=== PATIENT | male | born 1985 | race Hispanic/Latino ===

== ENCOUNTER 2019-07-23 14:25 | Emergency (ER) | payer OTHER ==
--- NOTE | 2019-07-23 14:50 | EDPHYS ---
Physician Documentation [facility] Name: Christopher Smith Age: 33 yrs Sex: Male : 1985 Arrival Date: 07/23/2019 Time: 14:27 Bed 18 Private MD: Unknown, Unknown ED Physician Alfie Caldwell HPI: 07/23 15:13 This 33 yrs old Male presents to ER via Ambulatory with complaints of Ear Pain.kb 15:13 The patient presents with pain. The complaints affect the right ear and left ear. kb Onset: The symptoms/episode began/occurred 5 day(s) ago. Modifying factors: The symptoms are alleviated by nothing, the symptoms are aggravated by nothing. Associated signs and symptoms: The patient has no apparent associated signs or symptoms. Severity of symptoms: At their worst the symptoms were moderate in the emergency department the symptoms are unchanged. The patient has not experienced similar symptoms in the past. The patient has been recently seen by a physician: the patient's primary care provider, 5 day(s) ago, with similar presenting complaints, and apparently given a diagnosis of ear infection , was given a prescription for antibiotics. Pt reports right ear pain since Wednesday, went to [place] and was given ear drops. Pain hasn't gotten better and now it's in left ear as well. States he has been using the drops every 6 hours as prescribed. Puts 4 drops in and lays on his side for 5 minutes then gets up. Historical: - Allergies: 14:32 No Known Allergies; la1 - PMHx: 14:32 Bipolar disorder; la1 - Immunization history:: Adult Immunizations up to date. - Social history:: Smoking status: Patient/guardian denies using tobacco. - Ebola Screening: : No symptoms or risks identified at this time. ROS: 15:11 Constitutional: Negative for fever, chills, and weight loss, Neck: Negative for injury, kb pain, and swelling, Cardiovascular: Negative for chest pain, palpitations, and edema, Respiratory: Negative for shortness of breath, cough, wheezing, and pleuritic chest pain, Abdomen/GI: Negative for abdominal pain, nausea, vomiting, diarrhea, and constipation, Back: Negative for injury and pain, MS/Extremity: Negative for injury and deformity, Skin: Negative for injury, rash, and discoloration, Neuro: Negative for headache, weakness, numbness, tingling, and seizure. 15:11 ENT: Positive for ear pain. Exam: 15:11 Constitutional: This is a well developed, well nourished patient who is awake, alert, kb and in no acute distress. Head/Face: Normocephalic, atraumatic. Neck: Trachea midline, no thyromegaly or masses palpated, and no cervical lymphadenopathy. Supple, full range of motion without nuchal rigidity, or vertebral point tenderness. No Meningismus. Chest/axilla: Normal chest wall appearance and motion. Nontender with no deformity. No lesions are appreciated. Cardiovascular: Regular rate and rhythm with a normal S1 and S2. No gallops, murmurs, or rubs. Normal PMI, no JVD. No pulse deficits. Respiratory: Lungs have equal breath sounds bilaterally, clear to auscultation and percussion. No rales, rhonchi or wheezes noted. No increased work of breathing, no retractions or nasal flaring. Abdomen/GI: Soft, non-tender, with normal bowel sounds. No distension or tympany. No guarding or rebound. No evidence of tenderness throughout. Skin: Warm, dry with normal turgor. Normal color with no rashes, no lesions, and no evidence of cellulitis. MS/ Extremity: Pulses equal, no cyanosis. Neurovascular intact. Full, normal range of motion. Neuro: Awake and alert, GCS 15, oriented to person, place, time, and situation. Cranial nerves II-XII grossly intact. Motor strength 5/5 in all extremities. Sensory grossly intact. Cerebellar exam normal. Normal gait. 15:11 ENT: External ear(s): are unremarkable, Ear canal(s): swelling, that is moderate, bilaterally, TM's: are normal. Vital Signs: 14:32 BP 138 / 105; Pulse 78; Resp 16; Temp 97.5; Pulse Ox 100% on R/A; la1 14:32 Weight 146.06 kg; la1 14:51 BP 128 / 89; Pulse 64; Resp 18; Pulse Ox 99% on R/A; Pain 10/10; em MDM: 14:33 Patient medically screened. [facility] 15:13 Data reviewed: vital signs, nurses notes. Data interpreted: Pulse oximetry: on room air kb is 99 %. Interpretation: normal. Counseling: I had a detailed discussion with the patient and/or guardian regarding: the historical points, exam findings, and any diagnostic results supporting the discharge/admit diagnosis, the need for outpatient follow up, an ENT specialist, to return to the emergency department if symptoms worsen or persist or if there are any questions or concerns that arise at home. ED course: Educated on correct administration of ear drops. . Administered Medications: No medications were administered Disposition: 07/23/19 14:49 Discharged to Home. Impression: Unspecified otitis externa, bilateral. - Condition is Stable. - Discharge Instructions: Otitis Externa, Zzxq-[id number], Ear Drops, Adult, [id number]-xu-[id number]. - Prescriptions for Ciprodex 0.3- 0.1 % Otic Drops, Suspension - instill 4 drop by OTIC route every 12 hours for 7 days , for ears ONLY; 1 Container. - Medication Reconciliation Form, Thank You Letter, Antibiotic Education, Prescription Opioid Use form. - Follow up: Emergency Department; When: As needed; Reason: Worsening of condition. Follow up: Private Physician; When: 2 - 3 days; Reason: Recheck today's complaints, Continuance of care, Re-evaluation by your physician. Addendum: 07/25/2019 07:00 Co-signature as Attending Physician, Alfie Caldwell MD I agree with the assessment and c dailey plan of care. Signatures: Radha Stone, TIMBER MANAGEMENT PROFESSOR-C TIMBER MANAGEMENT PROFESSOR-Ckb Alfie Caldwell MD MD cha Munoz, Edgar, SPINNING LATHE OPERATOR SPINNING LATHE OPERATOR em Vinayak Keene, RN RN la1 Corrections: (The following items were deleted from the chart) 07/23 15:02 14:49 07/23/2019 14:49 Discharged to Home. Impression: Unspecified otitis externa, em bilateral. Condition is Stable. Forms are Medication Reconciliation Form, Thank You Letter, Antibiotic Education, Prescription Opioid Use. Follow up: Emergency Department; When: As needed; Reason: Worsening of condition. Follow up: Private Physician; When: 2 - 3 days; Reason: Recheck today's complaints, Continuance of care, Re-evaluation by your physician. kb
--- NOTE | 2019-07-23 14:50 | ER ---
Nurse's Notes [facility] Name: Christopher Smith Age: 33 yrs Sex: Male : 1985 Arrival Date: 07/23/2019 Time: 14:27 Bed 18 Private MD: Unknown, Unknown Diagnosis: Unspecified otitis externa, bilateral Presentation: 07/23 14:31 Presenting complaint: Patient states: Right ear pain, seen at [place], given drops but not la1 helping. Transition of care: patient was not received from another setting of care. Onset of symptoms was July 23, 2019. Risk Assessment: Do you want to hurt yourself or someone else? Patient reports no desire to harm self or others. Initial Sepsis Screen: Does the patient meet any 2 criteria? No. Patient's initial sepsis screen is negative. Does the patient have a suspected source of infection? No. Patient's initial sepsis screen is negative. Care prior to arrival: None. 14:31 Method Of Arrival: Ambulatory la1 14:31 Acuity: JEAN-PIERRE 4 la1 Historical: - Allergies: 14:32 No Known Allergies; la1 - PMHx: 14:32 Bipolar disorder; la1 - Immunization history:: Adult Immunizations up to date. - Social history:: Smoking status: Patient/guardian denies using tobacco. - Ebola Screening: : No symptoms or risks identified at this time. Screenin:56 Abuse screen: Denies threats or abuse. Nutritional screening: No deficits noted. em Tuberculosis screening: No symptoms or risk factors identified. Fall Risk None identified. Assessment: 14:51 General: Appears in no apparent distress. uncomfortable, well groomed, well developed, em well nourished, Behavior is calm, cooperative, Reports fatigue for 1-2 days. Pain: Complains of pain in right ear and left ear. Neuro: Level of Consciousness is awake, alert, obeys commands, Oriented to person, place, time, situation, Appropriate for age. Cardiovascular: Capillary refill < 3 seconds Patient's skin is warm and dry. Respiratory: Airway is patent Respiratory effort is even, unlabored, Respiratory pattern is regular, symmetrical, Breath sounds are clear bilaterally. EENT: Nares are clear Oral mucosa is moist. Reports pain in right ear and left ear. Derm: Skin is intact, is healthy with good turgor, Skin is pink, warm \T\ dry. Musculoskeletal: Capillary refill < 3 seconds, Range of motion: intact in all extremities. 14:51 Reassessment: I agree with assessment completed by Josh Cloud LVN . aa5 Vital Signs: 14:32 BP 138 / 105; Pulse 78; Resp 16; Temp 97.5; Pulse Ox 100% on R/A; la1 14:32 Weight 146.06 kg; la1 14:51 BP 128 / 89; Pulse 64; Resp 18; Pulse Ox 99% on R/A; Pain 10/10; em ED Course: 14:27 Patient arrived in ED. as 14:27 Unknown, Unknown is Private Physician. as 14:29 Radha Stone [facility]-C [facility]. kb 14:29 Alfie Caldwell MD is Attending Physician. kb 14:32 Triage completed. la1 14:32 Arm band placed on left wrist. la1 14:40 Josh Cloud LVN is Primary Nurse. em 14:56 Patient has correct armband on for positive identification. em 14:56 No provider procedures requiring assistance completed. Patient did not have IV access em during this emergency room visit. Administered Medications: No medications were administered Outcome: 14:49 Discharge ordered by MD. kb 14:56 Discharged to home ambulatory. em 14:56 Condition: good 14:56 Discharge instructions given to patient, Instructed on discharge instructions, follow up and referral plans. medication usage, Demonstrated understanding of instructions, follow-up care, medications, Prescriptions given X 1. 15:02 Patient left the ED. em Signatures: Radha Stone FNP-C FNP-Josh Brand LVN LVN em Cyn Maguire as Mayra Kitchen, RN RN aa5 Vinayak Keene, RN RN la1
[2019-07-23 15:17] VITALS: BP 128/89; O2SAT 99
[2019-07-23 15:19] VITALS: TEMP 97.5
== END 2019-07-23 15:02 | disposition home or self-care (01) ==
LOC: ER 14:25
DX: H60.93 Unspecified otitis externa, bilateral (principal)
CPT/HCPCS: 99282

== ENCOUNTER 2020-05-31 05:45 | Emergency (ER) | payer OTHER ==
[2020-05-31 07:01] LABS: Absolute Lymphocytes (CBC) 2.1 K/uL (0.7-4.9); Basophils % 0.8 % (0-1.3); Hematocrit 43.5 % (39.6-49.0); Lymphocytes % 41.2 % (15.3-44.8); MPV 7.7 fL (7.6-11.3); RBC Red Blood Cell Count 5.08 M/uL (4.33-5.43)
[2020-05-31 07:24] LABS: ALT/SGPT 67 U/L (12-78); AST/SGOT 31 U/L (15-37); Albumin 3.7 g/dL (3.4-5.0); Alkaline Phosphatase 129 U/L (45-117); BUN Blood Urea Nitrogen 8 mg/dL (7-18); Bicarbonate 28 mmol/L (21-32); Bilirubin Direct 0.1 mg/dL (0-0.2); Bilirubin Total 0.4 mg/dL (0.2-1.0); Glucose Level 132 mg/dL (74-106); Magnesium 2.4 mg/dL (1.8-2.4); NT PRO-BNP 6 pg/mL (<125); Potassium 3.5 mmol/L (3.5-5.1); Protein, Total 8.3 g/dL (6.4-8.2); Sodium Level 139 mmol/L (136-145); Troponin (Emerg Dept Use Only) < 0.02 ng/mL (0.0-0.045)
[2020-05-31] MEDS ORDERED: AZITHROMYCIN IV 500 MG in NA CHLORIDE 0.9% 250 ML IVPB ONE (07:30)
[2020-05-31] MEDS ORDERED: ASPIRIN 81 MG CHEWABLE TABLET ONE (07:30)
[2020-05-31] MEDS ORDERED: dexAMETHasone 10 MG/ML VIAL ONE (07:30)
[2020-05-31] MEDS ORDERED: ALBUTEROL INHALER 60 PUFF/8 GM IH ONE (07:43)
[2020-05-31] MEDS ORDERED: FAMOTIDINE 20 MG/2 ML VIAL IV ONE (07:43)
--- NOTE | 2020-05-31 08:13 | RAD REPORT ---
EXAM DESCRIPTION: CT - Chest For Pe Angio - 05/31/2020 7:45 am CLINICAL HISTORY: Cough COMPARISON: None. TECHNIQUE: Dynamically enhanced axial 3 mm thick images of the chest were obtained during administra tion of <100> mL Isovue 370 IV contrast. Coronal and oblique reconstruction images were generated and reviewed. Exam utilizes a protocol for optimal evaluation of pulmonary arterial tree. Maximum intensity projections 3D imaging was utilized All CT scans are performed using dose optimization technique as appropriate and may include automated exposure control or mA/KV adjustment according to patient size. FINDINGS: A pulmonary embolus is not seen. A thoracic aortic aneurysm is not noted. A pleural effusion is not seen. A pericardial effusion is not seen. Mild to moderate patchy ground-glass opacities within the lungs Fatty liver IMPRESSION: Negative for a pulmonary embolism. Mild to moderate patchy ground-glass opacities within the lungs can be seen with Covid pneumonia
--- NOTE | 2020-05-31 08:14 | RAD REPORT ---
EXAM DESCRIPTION: Stefany Single View05/31/2020 6:34 am CLINICAL HISTORY: Cough COMPARISON: none FINDINGS: Mild to moderate patchy lung opacities The heart is normal size IMPRESSION: Mild to moderate patchy lung opacities may represent Covid pneumonia
--- NOTE | 2020-05-31 08:15 | EDPHYS ---
Physician Documentation [facility] Name: Christopher Smith Age: 34 yrs Sex: Male : 1985 Arrival Date: 05/31/2020 Time: 05:48 Bed 8 Private MD: ED Physician Alfie Caldwell HPI: 05/31 06:19 This 34 yrs old Male presents to ER via Ambulatory with complaints of COVID +, gogo DIFFICULTY BREATHING, NO TASTE OR SMELL. 06:19 The patient has shortness of breath with light activity. Onset: The symptoms/episode gogo began/occurred 3 day(s) ago. Duration: The symptoms are continuous, and are steadily getting worse. The patient's shortness of breath is aggravated by coughing, light activity. The patient or guardian reports cough, described as moderate, flu symptoms, arthralgias, low-grade fever, myalgias. Modifying factors: The symptoms are alleviated by nothing. the symptoms are aggravated by nothing. Severity of symptoms: At their worst the symptoms were moderate in the emergency department the symptoms are unchanged. Historical: - Allergies: 06:12 No Known Allergies; jb4 - Home Meds: 06:12 None [Active]; jb4 - PMHx: 06:12 Bipolar disorder; jb4 - PSHx: 06:12 None; jb4 - Immunization history:: Adult Immunizations up to date. - Social history:: Smoking status: Patient denies any tobacco usage or history of. Patient/guardian denies using alcohol, street drugs. - Family history:: not pertinent. ROS: 06:19 Constitutional: Negative for fever, chills, and weight loss, Eyes: Negative for injury, gogo pain, redness, and discharge, ENT: Negative for injury, pain, and discharge, Neck: Negative for injury, pain, and swelling, Cardiovascular: Negative for chest pain, palpitations, and edema, Abdomen/GI: Negative for abdominal pain, nausea, vomiting, diarrhea, and constipation, Back: Negative for injury and pain, : Negative for injury, bleeding, discharge, and swelling, MS/Extremity: Negative for injury and deformity, Skin: Negative for injury, rash, and discoloration, Neuro: Negative for headache, weakness, numbness, tingling, and seizure, Psych: Negative for depression, anxiety, suicide ideation, homicidal ideation, and hallucinations, Allergy/Immunology: Negative for hives, rash, and allergies, Endocrine: Negative for neck swelling, polydipsia, polyuria, polyphagia, and marked weight changes, Hematologic/Lymphatic: Negative for swollen nodes, abnormal bleeding, and unusual bruising. 06:19 Respiratory: Positive for cough, shortness of breath, at rest. Exam: 06:19 Constitutional: This is a well developed, well nourished patient who is awake, alert, gogo and in no acute distress. Head/Face: Normocephalic, atraumatic. Eyes: Pupils equal round and reactive to light, extra-ocular motions intact. Lids and lashes normal. Conjunctiva and sclera are non-icteric and not injected. Cornea within normal limits. Periorbital areas with no swelling, redness, or edema. ENT: Nares patent. No nasal discharge, no septal abnormalities noted. Tympanic membranes are normal and external auditory canals are clear. Oropharynx with no redness, swelling, or masses, exudates, or evidence of obstruction, uvula midline. Mucous membranes moist. Neck: Trachea midline, no thyromegaly or masses palpated, and no cervical lymphadenopathy. Supple, full range of motion without nuchal rigidity, or vertebral point tenderness. No Meningismus. Chest/axilla: Normal chest wall appearance and motion. Nontender with no deformity. No lesions are appreciated. Cardiovascular: Regular rate and rhythm with a normal S1 and S2. No gallops, murmurs, or rubs. Normal PMI, no JVD. No pulse deficits. Abdomen/GI: Soft, non-tender, with normal bowel sounds. No distension or tympany. No guarding or rebound. No evidence of tenderness throughout. Back: No spinal tenderness. No costovertebral tenderness. Full range of motion. Male : Normal genitalia with no discharge or lesions. Skin: Warm, dry with normal turgor. Normal color with no rashes, no lesions, and no evidence of cellulitis. MS/ Extremity: Pulses equal, no cyanosis. Neurovascular intact. Full, normal range of motion. Neuro: Awake and alert, GCS 15, oriented to person, place, time, and situation. Cranial nerves II-XII grossly intact. Motor strength 5/5 in all extremities. Sensory grossly intact. Cerebellar exam normal. Normal gait. Psych: Awake, alert, with orientation to person, place and time. Behavior, mood, and affect are within normal limits. 06:19 Respiratory: mild respiratory distress is noted, Respirations: normal, Breath sounds: rhonchi, Respiratory rate: 16 06:25 Musculoskeletal/extremity: Extremities: all appear grossly normal, with no appreciated gogo pain with palpation, DVT Exam: No signs of deep vein thrombosis. no pain, no swelling, no tenderness, negative Homans' sign noted on exam, no appreciated bluish discoloration, no erythema, no increased warmth. Vital Signs: 06:10 BP 143 / 90; Pulse 77; Resp 16; Temp 98.6(O); Pulse Ox 96% on R/A; Weight 145.15 kg jb4 (R); Height 5 ft. 10 in. (177.80 cm) (R); Pain 0/10; 08:30 BP 147 / 86; Pulse 72; Resp 18; Pulse Ox 98% on R/A; ph 09:13 BP 132 / 78; Pulse 76; Resp 18; Pulse Ox 98% on R/A; ph 10:16 BP 138 / 78; Pulse 75; Resp 20; Temp 97.8; Pulse Ox 99% on R/A; ph 06:10 Body Mass Index 45.91 (145.15 kg, 177.80 cm) jb4 MDM: 05:56 Patient medically screened. [facility] 06:25 Data reviewed: vital signs, nurses notes, lab test result(s), EKG, radiologic studies, [facility] plain films. 07:12 Differential diagnosis: Anxiety Reaction asthma, Bronchitis CHF exacerbation, Chronic gogo Obstructive Pulmonary Disease obstructed airway, bronchitis, flu, URI, pneumonia, Pneumothorax pulmonary edema, Pulmonary Embolism reactive airway disease, Unstable Angina. Antibiotic administration: Rocephin and Zithromax given. The patient's Wells Deep Vein Thrombosis Score was calculated as follows: Total Score: 0-2 Pts- Low Risk. The patient's pulmonary embolism risk score was calculated as follows: Total Score: 0-2 points. This patient was found to be at low risk for a pulmonary embolism by using the Well's assessment criteria. Immunization status:. Data interpreted: classroom monitor: rate is 77 beats/min, Pulse oximetry: on room air is 96 %. Test interpretation: by ED physician or midlevel provider: ECG, plain radiologic studies. Counseling: I had a detailed discussion with the patient and/or guardian regarding: the historical points, exam findings, and any diagnostic results supporting the discharge/admit diagnosis, lab results, radiology results, the need for outpatient follow up, for definitive care, a family practitioner, a maintenance supervisor electrical. 05/31 06:17 Order name: Basic Metabolic Panel; Complete Time: 07:44 [facility] 05/31 06:17 Order name: CBC with Diff; Complete Time: 07:21 [facility] 05/31 06:17 Order name: LFT's; Complete Time: 07:44 [facility] 05/31 06:17 Order name: Magnesium; Complete Time: 07:44 [facility] 05/31 06:17 Order name: NT PRO-BNP; Complete Time: 07:44 [facility] 05/31 06:17 Order name: Troponin (emerg Dept Use Only); Complete Time: 07:44 [facility] 05/31 06:17 Order name: XRAY Chest (1 view); Complete Time: 08:16 [facility] 05/31 06:17 Order name: Blood Culture Adult (2) [facility] 05/31 06:17 Order name: D-Dimer; Complete Time: 07:21 [facility] 05/31 07:12 Order name: CT Chest For PE Angio; Complete Time: 08:14 [facility] 05/31 06:17 Order name: EKG; Complete Time: 06:18 [facility] 05/31 06:17 Order name: Cardiac monitoring; Complete Time: 07:02 [facility] 05/31 06:17 Order name: EKG - Nurse/Tech; Complete Time: 06:58 [facility] 05/31 06:17 Order name: IV Saline Lock; Complete Time: 06:58 [facility] 05/31 06:17 Order name: Labs collected and sent; Complete Time: 06:58 [facility] 05/31 06:17 Order name: O2 Per Protocol; Complete Time: 07:02 [facility] 05/31 06:17 Order name: O2 Sat Monitoring; Complete Time: 06:59 [facility] Administered Medications: 08:47 Drug: Decadron - Dexamethasone 10 mg Route: IVP; Site: left antecubital; ph 10:15 Follow up: Response: No adverse reaction ph 08:47 Drug: Aspirin 162 mg Route: PO; ph 10:15 Follow up: Response: No adverse reaction ph 08:47 Drug: Rocephin 1 grams Route: IV; Rate: per protocol; Site: left antecubital; ph 10:15 Follow up: Response: No adverse reaction; IV Status: Completed infusion ph 08:48 Drug: Zithromax 500 mg Route: IVPB; Infused Over: 1 hrs; Site: left antecubital; ph 09:50 Follow up: Response: No adverse reaction; IV Status: Completed infusion ph 08:48 Drug: Pepcid 20 mg Route: IVP; Site: left antecubital; ph 10:14 Follow up: Response: No adverse reaction ph 08:48 Drug: Albuterol HFA Inhaler 4 puffs Route: Inhalation; ph 10:14 Follow up: Response: No adverse reaction ph Disposition: 05/31/20 08:15 Discharged to Home. Impression: Dyspnea, Acute upper respiratory infection, unspecified - Covid 19 positive, Other chest pain. - Condition is Stable. - Discharge Instructions: Nonspecific Chest Pain, Chest Wall Pain, Shortness of Breath, Upper Respiratory Infection, Adult, Cool Mist Vaporizer, Shortness of Breath, Cbkp-qh-Jdyw, Chest Wall Pain, Lgzz-ye-Byce, Nonspecific Chest Pain, Zhpy-wz-Ncrv, Upper Respiratory Infection, Adult, Qlcj-nx-Spjs, Aspirin and Your Heart, Cough, Adult, COVID-19. - Prescriptions for dexamethasone 2 mg Oral tablet - take 1 tablet by ORAL route 3 times per day; 21 tablet. Pepcid 20 mg Oral Tablet - take 1 tablet by ORAL route every 12 hours for 10 days; 20 tablet. Albuterol Sulfate 90 mcg/actuation - inhale 1-2 puff by INHALATION route every 4-6 hours; 1 Inhaler. Zithromax 500 mg Oral Tablet - take 1 tablet by ORAL route once daily for 5 days; 5 tablet. - Medication Reconciliation Form, Thank You Letter, Antibiotic Education, Prescription Opioid Use form. - Follow up: Private Physician; When: 2 - 3 days; Reason: Recheck today's complaints, Continuance of care, Re-evaluation by your physician. - Problem is new. - Symptoms have improved. Signatures: Dispatcher [employer] EDAlfie Camarena MD MD cha Roszak, Josh, PA PA [id number] Lizbeth Apple RN RN Scott Lam RN RN jb4 Corrections: (The following items were deleted from the chart) 10:17 08:15 05/31/2020 08:15 Discharged to Home. Impression: Dyspnea; Acute upper respiratory ph infection, unspecified - Covid 19 positive; Other chest pain. Condition is Stable. Discharge Instructions: Nonspecific Chest Pain, Chest Wall Pain, Shortness of Breath, Upper Respiratory Infection, Adult, Cool Mist Vaporizer, Shortness of Breath, Zxxb-bv-Agrt, Chest Wall Pain, Wlqt-ez-Rrtc, Nonspecific Chest Pain, Jzko-gh-Bwhl, Upper Respiratory Infection, Adult, Smll-xg-Wzlj, Aspirin and Your Heart, Cough, Adult, COVID-19. Prescriptions for dexamethasone 2 mg Oral tablet - take 1 tablet by ORAL route 3 times per day; 21 tablet, Pepcid 20 mg Oral Tablet - take 1 tablet by ORAL route every 12 hours for 10 days; 20 tablet, Albuterol Sulfate 90 mcg/actuation - inhale 1-2 puff by INHALATION route every 4-6 hours; 1 Inhaler, Zithromax 500 mg Oral Tablet - take 1 tablet by ORAL route once daily for 5 days; 5 tablet. and Forms are Medication Reconciliation Form, Thank You Letter, Antibiotic Education, Prescription Opioid Use. Follow up: Private Physician; When: 2 - 3 days; Reason: Recheck today's complaints, Continuance of care, Re-evaluation by your physician. Problem is new. Symptoms have improved. [id number]
--- NOTE | 2020-05-31 08:15 | ER ---
Nurse's Notes [facility] Name: Christopher Smith Age: 34 yrs Sex: Male : 1985 Arrival Date: 05/31/2020 Time: 05:48 Bed 8 Private MD: Diagnosis: Dyspnea;Acute upper respiratory infection, unspecified-Covid 19 positive;Other chest pain Presentation: 05/31 06:10 Chief complaint: Patient states: I was diagnosed with Covid-19 on Wednesday. Now I am jb4 having coughing fits and a harder time breathing. Ebola Screen: No symptoms or risks identified at this time. Initial Sepsis Screen: Does the patient meet any 2 criteria? No. Patient's initial sepsis screen is negative. Does the patient have a suspected source of infection? No. Patient's initial sepsis screen is negative. Risk Assessment: Do you want to hurt yourself or someone else? Patient reports no desire to harm self or others. Onset of symptoms was May 27, 2020. Transition of care: patient was not received from another setting of care. 06:10 Method Of Arrival: Ambulatory jb4 06:10 Acuity: JEAN-PIERRE 3 jb4 10:17 Coronavirus screen: Client reports previous positive COVID test result. ph Historical: - Allergies: 06:12 No Known Allergies; jb4 - Home Meds: 06:12 None [Active]; jb4 - PMHx: 06:12 Bipolar disorder; jb4 - PSHx: 06:12 None; jb4 - Immunization history:: Adult Immunizations up to date. - Social history:: Smoking status: Patient denies any tobacco usage or history of. Patient/guardian denies using alcohol, street drugs. - Family history:: not pertinent. Screenin:10 Abuse screen: Denies threats or abuse. Nutritional screening: No deficits noted. jb4 Tuberculosis screening: No symptoms or risk factors identified. Fall Risk None identified. Assessment: 06:10 General: Appears in no apparent distress. comfortable, Behavior is calm, cooperative, jb4 appropriate for age. Pain: Denies pain. Neuro: Level of Consciousness is awake, alert, obeys commands, Oriented to person, place, time, situation. Cardiovascular: Patient's skin is warm and dry. Respiratory: Reports shortness of breath on exertion cough that is non-productive, persistent. GI: No signs and/or symptoms were reported involving the gastrointestinal system. : No signs and/or symptoms were reported regarding the genitourinary system. EENT: No signs and/or symptoms were reported regarding the EENT system. Derm: Skin is intact, Skin is pink, warm \T\ dry. Musculoskeletal: Circulation, motion, and sensation intact. Range of motion: intact in all extremities. 07:15 Reassessment: Patient appears in no apparent distress at this time. Patient and/or ph family updated on plan of care and expected duration. Pain level reassessed. Patient is alert, oriented x 3, equal unlabored respirations, skin warm/dry/pink. 08:31 Reassessment: Patient appears in no apparent distress at this time. Patient and/or ph family updated on plan of care and expected duration. Pain level reassessed. Patient is alert, oriented x 3, equal unlabored respirations, skin warm/dry/pink. D/C pending completion of IV medications. 09:30 Reassessment: Patient appears in no apparent distress at this time. Patient and/or ph family updated on plan of care and expected duration. Pain level reassessed. Patient is alert, oriented x 3, equal unlabored respirations, skin warm/dry/pink. 10:15 Reassessment: Patient appears in no apparent distress at this time. Patient and/or ph family updated on plan of care and expected duration. Pain level reassessed. Patient is alert, oriented x 3, equal unlabored respirations, skin warm/dry/pink. IV meds complete, pt d/c home, instructed to return to ED if SOB worsens. Vital Signs: 06:10 BP 143 / 90; Pulse 77; Resp 16; Temp 98.6(O); Pulse Ox 96% on R/A; Weight 145.15 kg jb4 (R); Height 5 ft. 10 in. (177.80 cm) (R); Pain 0/10; 08:30 BP 147 / 86; Pulse 72; Resp 18; Pulse Ox 98% on R/A; ph 09:13 BP 132 / 78; Pulse 76; Resp 18; Pulse Ox 98% on R/A; ph 10:16 BP 138 / 78; Pulse 75; Resp 20; Temp 97.8; Pulse Ox 99% on R/A; ph 06:10 Body Mass Index 45.91 (145.15 kg, 177.80 cm) jb4 ED Course: 05:48 Patient arrived in ED. ag3 05:56 Alfie Caldwell MD is Attending Physician. gogo 06:10 Scott Lorenzo, KENDELL is Primary Nurse. jb4 06:10 Patient has correct armband on for positive identification. Bed in low position. Call jb4 light in reach. Side rails up X 1. Pulse ox on. NIBP on. 06:12 Triage completed. jb4 06:12 Arm band placed on right wrist. jb4 06:33 XRAY Chest (1 view) In Process Unspecified. EDMS 06:50 Inserted saline lock: 20 gauge in left antecubital area, using aseptic technique. Blood oe collected. 07:43 Julio Cesar Bangura PA is PHCP. jr8 07:45 CT Chest For PE Angio In Process Unspecified. EDMS 09:13 No provider procedures requiring assistance completed. ph 10:17 IV discontinued, intact, bleeding controlled, No redness/swelling at site. Pressure ph dressing applied. Administered Medications: 08:47 Drug: Decadron - Dexamethasone 10 mg Route: IVP; Site: left antecubital; ph 10:15 Follow up: Response: No adverse reaction ph 08:47 Drug: Aspirin 162 mg Route: PO; ph 10:15 Follow up: Response: No adverse reaction ph 08:47 Drug: Rocephin 1 grams Route: IV; Rate: per protocol; Site: left antecubital; ph 10:15 Follow up: Response: No adverse reaction; IV Status: Completed infusion ph 08:48 Drug: Zithromax 500 mg Route: IVPB; Infused Over: 1 hrs; Site: left antecubital; ph 09:50 Follow up: Response: No adverse reaction; IV Status: Completed infusion ph 08:48 Drug: Pepcid 20 mg Route: IVP; Site: left antecubital; ph 10:14 Follow up: Response: No adverse reaction ph 08:48 Drug: Albuterol HFA Inhaler 4 puffs Route: Inhalation; ph 10:14 Follow up: Response: No adverse reaction ph Outcome: 08:15 Discharge ordered by . jr8 10:17 Discharged to home ambulatory. ph 10:17 Condition: good 10:17 Discharge instructions given to patient, Instructed on discharge instructions, follow up and referral plans. medication usage, Demonstrated understanding of instructions, follow-up care, medications, Prescriptions given X 4. 10:17 Patient left the ED. ph Signatures: Dispatcher [employer] EDAlfie Camarena MD MD cha Roszak, Josh, PA PA jr8 Lizbeth Apple RN RN ph Scott Lorenzo RN RN jb4 [facility] ag3 Corrections: (The following items were deleted from the chart) 09:41 06:10 Coronavirus screen: Client reports previous positive COVID test result. Date of hb collection: May 27, 2020 jb4
[2020-05-31] MEDS ORDERED: CEFTRIAXONE/SWI 1gm 1 GM/10 ML SYR ONE (08:20)
[2020-05-31 10:28] VITALS: BP 138/78; TEMP 97.8; O2SAT 99
--- NOTE | 2020-06-01 12:27 | EKG ---
Test Date: 2020-05-31 Test Time: 06:33:22 Nanoelectronics Engineer: CORA MEASUREMENT RESULTS: Intervals: Rate: 81 RI: 176 QRSD: 88 QT: 360 QTc: 418 Henderson: P: 42 RI: 176 QRS: -19 T: 11 INTERPRETIVE STATEMENTS: Normal sinus rhythm Possible Left atrial enlargement Nonspecific T wave abnormality Abnormal ECG No previous ECG available for comparison Electronically Signed On 06-01-20 12:24:46 CDT by Waylon Solano
== END 2020-05-31 10:17 | disposition home or self-care (01) ==
LOC: ER 05:45
DX: U07.1 COVID-19 (principal); J06.9 Acute upper respiratory infection, unspecified; R07.89 Other chest pain
CPT/HCPCS: 96365; 93005; 87040 ×2; 85025; 80048; 36415; 83735; 85379; 80076; 84484; 83880; 71275; 71045; 96375; 99284; Q9967; J0456; J1100; J0696; J7050